=== PATIENT | female | born 1995 | race Caucasian/White ===

== ENCOUNTER 2018-01-03 13:02 | Outpatient (CLI) | payer MEDICAID ==
--- NOTE | 2018-01-03 14:33 | ULT ---
PELVIC SONOGRAM TRANSABDOMINAL AND TRANSVAGINAL IMAGING WITH DUPLEX EVALUATION: History: Ovarian cyst. Pelvic pain. FINDINGS: Urinary bladder is decompressed. Uterus has a heterogeneous echotexture and is 6.6 cm. Endometrium is 0.5 cm. Physiologic amount of free fluid in the cul-de-sac. Right ovary is 3.0 cm and left is 2.7 cm. Each has a normal appearance with follicles and demonstrate s good color and spectral doppler flow. IMPRESSION: Normal pelvic sonogram. POS: ZHANNA
== END 2018-01-03 13:03 | disposition home or self-care (01) ==
LOC: SCSULT 13:02
PROVIDERS: ATTEND Family Medicine
DX: N83.202 Unspecified ovarian cyst, left side (principal); R93.5 Abnormal findings on diagnostic imaging of other abdominal regions, including retroperitoneum
CPT/HCPCS: 76856